=== PATIENT | female | born 1975 | race Caucasian/White ===

== ENCOUNTER → 2016-05-11 | Outpatient (CLI) | payer BC ==
--- NOTE | 2016-05-11 14:21 | BD ---
EXAMINATION TYPE: MG DEXA axial skeleton. DATE OF EXAM: 05/11/2016 1:59 PM COMPARISON: NONE CLINICAL HISTORY: C50.811 BREAST CANCER : LMP August, Height: 66.5 Weight: 224 FRAX RISK QUESTIONS: Alcohol (3 or more units per day): NO Family History (Parent hip fracture): NONE KNOWN Glucocorticoids (More than 3mos): NO (Ex: prednisone, prednisolone, methylprednisolone, dexamethasone, and hydrocortisone). History of Fracture in Adulthood: NO Secondary Osteoporosis: NO 1. Type 1 Diabetes: NO 2. Hyperthyroidism: NO 3. Menopause before 45: YES 4. Malnutrition: GOING THROUGH CHEMO AND BREAST CANCER TREATMENTS 5. Chronic liver disease: NO Rheumatoid Arthritis: NO Current Tobacco Use: NO RISK FACTORS HISTORY OF: Other Fractures since Age 52: NA Family History of Osteoporosis: NONE KNOWN Smoke tobacco: NO Drink Alcohol: SOCIAL Active: HAS A SMALL CHILD, NO FORMAL EXERCISE Diet low in dairy products/other sources of calcium: LACTOSE AND CELIAC DISEASE, SO YES, LOW Postmenopausal woman: August, Lost more than 2 inches in height since high school: NO Adrenal Insufficiency: NO MEDICATIONS: Additional Medications: HX OF CHEMO, LORITAB, VIT D, LETROZOLE, LUPRON, Additional History: HX OF RT BREAST CANCER, WHICH HAS NOW RE-OCCURED, DOUBLE MASTECTOMY SCHEDULED FOR 2016 EXAM MEASUREMENTS: Bone mineral densitometry was performed using the [employer] System. Bone mineral density as measured about the Lumbar spine is: ----- L1-L4(G/cm2): 1.124 T Score Values are as follows: ----- L1: -1.1 ----- L2: -0.4 ----- L3: 0.1 ----- L4: -0.7 ----- L1-L4: -0.5 Bone mineral density THIS IS THE FIRST BONE DENSITY SCAN FOR PATIENT, BASELINE Bone mineral density about the R hip (g/cm2): 0.890 Bone mineral density about the L hip (g/cm2): 0.894 T Score values are as follows: -----R Neck: -1.1 -----L Neck: -1.0 -----R Intertrochanter: -1.2 -----L Intertrochanter: -1.2 Bone mineral density FIRST BONE DENSITY SCAN, BASELINE NO FRAX.....PT IS 40 YRS OLD IMPRESSION: Osteopenia (T Score between -2.5 and -1 as noted by T score values There is slightly increased risk of fracture and the patient may be considered for treatment. Re-Screen 1-2 years. FOR L1 OF SPINE ONLY AND BOTH HIPS NOTE: T-SCORE=SD OF THE YOUNG ADULT MEAN.
== END | disposition home or self-care (01) ==
LOC: RADBDWWP 13:23
PROVIDERS: ATTEND Internal Medicine Hematology & Oncology
DX: M85.852 Other specified disorders of bone density and structure, left thigh (principal); M85.851 Other specified disorders of bone density and structure, right thigh; M85.88 Other specified disorders of bone density and structure, other site; C50.919 Malignant neoplasm of unspecified site of unspecified female breast; Z79.890 Hormone replacement therapy
CPT/HCPCS: 77080

== ENCOUNTER → 2017-01-17 | Outpatient (CLI) | payer BC ==
[~2017-01-17] MED LIST: LEUPROLIDE ACET 11.25MG SYRGKIT IM ONE
[2017-01-17 14:43] VITALS: BP 123/79; PULSE 79; RESP 18; TEMP 98.2
== END ==
LOC: PROCWHC3 14:25
PROVIDERS: ATTEND Internal Medicine Hematology & Oncology
DX: C50.811 Malignant neoplasm of overlapping sites of right female breast (principal)
CPT/HCPCS: 96372; J1950

== ENCOUNTER → 2017-02-22 | Outpatient (CLI) | payer BC ==
--- NOTE | 2017-02-22 19:05 | MR ---
EXAMINATION TYPE: MR brain wo/w con DATE OF EXAM: 02/22/2017 COMPARISON: NONE HISTORY: HX of Breast CA TECHNIQUE: Multiplanar, multisequence images of the brain and brainstem is performed without and with IV contras t, utilizing 10 mL intravenous Gadavist . FINDINGS: Diffusion weighted images demonstrate no evidence of a recent infarct or other diffusion ab normality. There is no extra-axial fluid collection or significant white matter signal abnormality. The ventricular system and cisternal spaces are normal in size and appearance. The brain volume is age appropriate. Midline structures demonstrate normal morphology. The craniocervical junction appears within normal limits. Changes of bilateral chronic mastoiditis noted. Changes of chronic sinusitis seen. IMPRESSION: 1. Chronic sinusitis and bilateral mastoiditis. 2. No enhancing mass.
== END | disposition home or self-care (01) ==
LOC: RADMRIMAIN 17:37
PROVIDERS: ATTEND Internal Medicine Hematology & Oncology
DX: C50.811 Malignant neoplasm of overlapping sites of right female breast (principal); R51 Headache
CPT/HCPCS: 70553; A9581